=== PATIENT | female | born 1960 | race Hispanic/Latino ===

== ENCOUNTER 2019-09-11 23:22 | Emergency (ER) | payer SELFPAY ==
[~2019-09-11] VITALS: Ht 154.9 cm; Wt 83.9 kg
--- NOTE | 2019-09-11 23:30 | Emergency Department Note ---
History of Present Illnes History of Present Illness History of Present Illness This is a 59 year old female with subjective dyspnea and chills since this AM. Patient denies fevers or myalgias. reports exposure to several family members who had tested positive for the COVID-19 infection Historian: Patient Arrival Mode: Car History limited by: language barrier Residence Life Coordinator Required: Yes Onset (how long ago): day(s) (1) Radiation: Reports non-radiation Severity: mild Onset quality: gradual Duration (how long): day(s) (1) Timing of current episode: constant Progression: unchanged Chronicity: new Context: Denies recent illness Relieving factors: none Exacerbating factors: none Associated symptoms: Reports denies other symptoms Past Medical/Family History Physician Review I have reviewed the patient's past medical and family history. Any updates have been documented here. Past Medical History Recent Fever: No Clinical Suspicion of Infectio: Yes New/Unexplained Change in Ment: No Past Medical History: Hypertension, Diabetes Social History Smoking Cessation: Never Smoker Counseling Performed: Yes Any Illegal Drug Use: No Review of Systems Review of Systems Constitutional: Denies fever, Denies malaise, Denies weakness EENTM: Reports no symptoms Cardiovascular: Reports no symptoms Respiratory: Reports dyspnea; Denies cough Gastrointestinal: Reports no symptoms Genitourinary: Reports no symptoms Musculoskeletal: Reports no symptoms Integumentary: Reports no symptoms Neurological: Reports no symptoms Psychological: Reports no symptoms Endocrine: Reports no symptoms Hematological/Lymphatic: Reports no symptoms Physical Exam Related Data Allergies: Coded Allergies: No Known Allergies (Unverified , 09/11/19) Vital signs reviewed: Yes Physical Exam CONSTITUTIONAL Constitutional: Present obese; Absent ill appearing HENT HENT: Present normocephalic, Present atraumatic, Present oropharynx clear/moist, Present nose normal HENT L/R: Present left ext ear normal, Present right ext ear normal EYES Eyes: Reports PERRL, Reports conjunctivae normal NECK Neck: Present ROM normal PULMONARY Pulmonary: Present effort normal, Present breath sounds normal CARDIOVASCULAR Cardiovascular: Present regular rhythm, Present heart sounds normal, Present capillary refill normal, Present normal rate GASTROINTESTINAL Abdominal: Present soft, Present nontender, Present bowel sounds normal GENITOURINARY Genitourinary: Present exam deferred SKIN Skin: Present warm, Present dry MUSCULOSKELETAL Musculoskeletal: Present ROM normal NEUROLOGICAL Neurological: Present alert, Present oriented x 3, Present no gross motor or sensory deficits PSYCHOLOGICAL Psychological: Present mood/affect normal, Present judgement normal Results Imaging Imaging results reviewed: Yes Impressions [place] [id number] Patient Name: THOMAS VALENCIA MR #: [id number] : 1960 Age/Sex: 59/F Req #: [id number] Adm Physician: Ordered by: ROOPA MORALES DO Report #: [id number] Location: ER Room/Bed: Procedure: [id number] DX/CHEST SINGLE (PORTABLE) Exam Date: 09/11/19 Exam Time: 9 REPORT STATUS: Signed EXAMINATION: CHEST SINGLE (PORTABLE) INDICATION: Dyspnea COMPARISON: None FINDINGS: TUBES and LINES: None. LUNGS: Normal lung volumes. Right basilar strandy opacity. The left lung is clear. PLEURA: No pleural effusion or pneumothorax. HEART AND MEDIASTINUM: The cardiomediastinal silhouette is unremarkable. BONES AND SOFT TISSUES: No acute osseous lesion. Soft tissues are unremarkable. UPPER ABDOMEN: No free air under the diaphragm. IMPRESSION: Strandy right basilar opacity is favored to represent mild subsegmental atelectasis, although an early infectious/inflammatory process is difficult to exclude. Signed by: Sravani Burns MD on 09/12/2019 1:10 AM Dictated By: SRAVANI BURNS MD 9 Transcribed By: NINI on 09/12/19109 COPY TO: ROOPA MORALES DO~ Assessment & Plan Medical Decision Making MDM 59 yof with chills and dyspneqa. (+) contact with family members with similiar symptoms. COVID-19 highly suspected but testing deferred secondary to stable vital signs and high oxygen saturation on RA. Patient to be given Rx Azithrom ycin and albuterol. Patient to be given resources for outpatient testing center- Assessment & Plan Final Impression: (1) Person under investigation for COVID-19 (2) Elevated blood pressure reading Depart Disposition: HOME, SELF-CARE Last Vital Signs Date Time Temp Pulse Resp B/P (MAP) Pulse Ox O2 Delivery O2 Flow Rate FiO2 09/12/19 01:22 92 16 09/12/19 00:22 154/66 09/11/19 23:40 98.2 100 Room Air ROOPA MORALES DO Sep 11, 2019 23:30
[2019-09-11] MEDS ORDERED: CLONIDINE HCL 0.2 MG TAB PO ONE (23:45)
--- NOTE | 2019-09-12 01:13 | Diagnostic Imaging Report ---
EXAMINATION: CHEST SINGLE (PORTABLE) INDICATION: Dyspnea COMPARISON: None FINDINGS: TUBES and LINES: None. LUNGS: Normal lung volumes. Right basilar strandy opacity. The left lung is clear. PLEURA: No pleural effusion or pneumothorax. HEART AND MEDIASTINUM: The cardiomediastinal silhouette is unremarkable. BONES AND SOFT TISSUES: No acute osseous lesion. Soft tissues are unremarkable. UPPER ABDOMEN: No free air under the diaphragm. IMPRESSION: Strandy right basilar opacity is favored to represent mild subsegmental atelectasis, although an early infectious/inflammatory process is difficult to exclude. Signed by: Kamar Byrne MD on 09/12/2019 1:10 AM
[2019-09-12 01:22] VITALS: BP 171/89
== END 2019-09-12 01:35 | disposition home or self-care (01) ==
LOC: ER 23:32
DX: Z03.818 Encounter for observation for suspected exposure to other biological agents ruled out (principal); I10 Essential (primary) hypertension; E11.9 Type 2 diabetes mellitus without complications
CPT/HCPCS: 71045; 99283